=== PATIENT | female | born 1945 | race African-American/Black ===

== ENCOUNTER 2019-04-04 15:41 | Observation (INO) | payer OTHER ==
[2019-04-04] MEDS ORDERED: ASPIRIN PO ONE (16:02)
--- NOTE | 2019-04-04 16:03 | Event Note ---
ED Screening Note Date of service: 04/04/19 Time: 15:59 ED Screening Note: This is a 73 y.o. F. that presents to the ER with SOB, chest pain, and numbness on the LUE. Reports symptoms started at 0100 AM today. Reports blurry vision started shortly after. PMH HTN, peripheral vascular disease, HLD Denies recent travel, fever, cough This initial assessment/diagnostic orders/clinical plan/treatment(s) is/are subject to change based on patients health status, clinical progression and re-assessment by fellow clinical providers in the ED. Further treatment and workup at subsequent clinical providers discretion. Patient/guardian urged not to elope from the ED as their condition may be serious if not clinically assessed and managed. Initial orders include: Labs, EKG, & CXR
[2019-04-04 16:38] LABS: Basophils % (Auto) 0.4 % (0.0-1.8); Eosinophils # (Auto) 0.1 K/mm3 (0.0-0.4); Eosinophils % (Auto) 1.5 % (0.0-4.3); Hematocrit 42.2 % (30.3-42.9); Hemoglobin 14.4 gm/dl (10.1-14.3); Lymphocytes # (Auto) 1.4 K/mm3 (1.2-5.4); Lymphocytes % (Auto) 36.3 % (13.4-35.0); Mean Corpuscular HGB Conc 34 % (30-34); Mean Corpuscular Volume 81 fl (79-97); Monocytes # (Auto) 0.4 K/mm3 (0.0-0.8); Monocytes % (Auto) 9.1 % (0.0-7.3); Platelet Count 235 K/mm3 (140-440); Red Cell Distribution Width 13.1 % (13.2-15.2)
--- NOTE | 2019-04-04 16:45 | XRay Report ---
CHEST 1 VIEW INDICATION: Chest Pain. COMPARISON: None. FINDINGS: Support devices: None. Heart: Within normal limits. Lungs/Pleura: Lung volumes are mildly diminished. Negative for significant infiltrate. Additional findings: None. IMPRESSION: Diminished lung volumes. Signer Name: Chivo Fraser MD Signed: 04/04/2019 4:40 PM Workstation Name: [id number]
[2019-04-04 16:59] LABS: BUN/Creatinine Ratio 35; Blood Urea Nitrogen 21 mg/dL (7-17); Calcium 9.6 mg/dL (8.4-10.2); Hemolysis Index 8
--- NOTE | 2019-04-04 20:33 | Emergency Department Report ---
ED Chest Pain HPI - General Chief Complaint: Dyspnea/Respdistress Stated Complaint: CHEST PAIN/GERALDINE/LT ARM NUMB Time Seen by Provider: 04/04/19 15:59 Source: writer producer, old records reviewed (previous medical clerk recommended) Mode of arrival: Ambulatory Limitations: No Limitations - History of Present Illness Initial Comments: 73-year-old female with a past medical history of hypertension, pacemaker placement, PVD, and hyperlipidemia presents to the Hospital complaining of left- sided chest pain, shortness of breath, left arm numbness that started about 1 AM. Patient had dizziness and blurred vision which has since resolved. Patient has continued to have intermittent chest pain and shortness of breath throughout the day. Patient had a similar episode 15 days ago that occurred while sleeping as well but then resolved. No reports of nausea, vomiting, or diaphoresis. Patient denies recent travel or cough. She does not smoke cigarettes and denies a personal history of CAD. No previous stress test reported. She takes aspirin 81 mg daily. She is compliant with her other medications. PMD: None. - Related Data Allergies Allergy/AdvReac Type Severity Reaction Status Date / Time No Known Allergies Allergy Unverified 04/04/19 16:07 Heart Score - HEART Score History: Moderately suspicious EKG: Non-specific Age: > 65 Risk factors: > 3 risk factors or hx of atherosclerotic disease Troponin: < normal limit HEART Score: 6 ED Review of Systems ROS: Stated complaint: CHEST PAIN/GERALDINE/LT ARM NUMB Other details as noted in HPI Comment: All other systems reviewed and negative ED Past Medical Hx - Past Medical History Hx Hypertension: Yes Additional medical history: PVD - Social History Smoking Status: Never Smoker Substance Use Type: None ED Physical Exam - General Limitations: No Limitations - Other Other exam information: General: no acute distress Head: Atraumatic, normocephalic Eyes: Normal appearance, pupils equal and reactive to light, extraocular movements intact ENT: normal oropharynx Neck: Normal appearance, no stridor, no meningismus, no midline tenderness. Cardiovascular: Regular rate and rhythm chest wall nontender Chest: Clear to auscultation, no wheezes, rales, or crackles Abdomen: nondistended, soft, nontender, no rebound or guarding Extremity: Normal appearance, no deformity, full range of motion, no calf tenderness or edema Neuro: Alert and oriented 3, clear speech, no gross motor or sensory deficit Skin: No warmth, erythema ED Course Vital Signs 04/04/19 04/04/19 04/04/19 16:01 17:50 20:11 Temperature 97.8 F Pulse Rate 72 61 Respiratory 18 16 16 Rate Blood Pressure 171/65 Blood Pressure 154/99 [Right] O2 Sat by Pulse 91 94 Oximetry ED Medical Decision Making - Lab Data Result diagrams: 04/04/19 16:21 04/04/19 16:21 Lab Results 04/04/19 04/04/19 04/04/19 Range/Units 16:21 16:21 19:12 WBC 3.9 L (4.5-11.0) K/mm3 RBC 5.20 H (3.65-5.03) M/mm3 Hgb 14.4 H (10.1-14.3) gm/dl Hct 42.2 (30.3-42.9) % MCV 81 (79-97) fl MCH 28 (28-32) pg MCHC 34 (30-34) % RDW 13.1 L (13.2-15.2) % Plt Count 235 (140-440) K/mm3 Lymph % (Auto) 36.3 H (13.4-35.0) % [place] % (Auto) 9.1 H (0.0-7.3) % Eos % (Auto) 1.5 (0.0-4.3) % Baso % (Auto) 0.4 (0.0-1.8) % Lymph # 1.4 (1.2-5.4) K/mm3 [place] # 0.4 (0.0-0.8) K/mm3 Eos # 0.1 (0.0-0.4) K/mm3 Baso # 0.0 (0.0-0.1) K/mm3 Seg Neutrophils % 52.7 (40.0-70.0) % Seg Neutrophils # 2.1 (1.8-7.7) K/mm3 Sodium 140 (137-145) mmol/L Potassium 3.5 L (3.6-5.0) mmol/L Chloride 102.1 (98-107) mmol/L Carbon Dioxide 22 (22-30) mmol/L Anion Gap 19 mmol/L BUN 21 H (7-17) mg/dL Creatinine 0.6 L (0.7-1.2) mg/dL Estimated GFR > 60 ml/min BUN/Creatinine Ratio 35 % Glucose 113 H (65-100) mg/dL Calcium 9.6 (8.4-10.2) mg/dL Troponin T < 0.010 < 0.010 (0.00-0.029) ng/mL - EKG Data -: EKG Interpreted by Me (RBB, premature atrial complex) EKG shows normal: sinus rhythm, axis (qrs -23), QRS complexes (qrsd 151), ST-T waves (no stemi) Rate: normal (70) - EKG Data When compared to previous EKG there are: previous EKG unavailable - Radiology Data Radiology results: report reviewed CHEST 1 VIEW INDICATION: Chest Pain. COMPARISON: None. FINDINGS: Support devices: None. Heart: Within normal limits. Lungs/Pleura: Lung volumes are mildly diminished. Negative for significant infiltrate. Additional findings: None. IMPRESSION: Diminished lung volumes. - Differential Diagnosis MD, angina, PE, dissection, atypical chest pain, CHF, sleep apnea Critical Care Time: No Critical care attestation.: If time is entered above; I have spent that time in minutes in the direct care of this critically ill patient, excluding procedure time. ED Disposition Clinical Impression: Chest pain, Hypertension, Hyperlipidemia Disposition: DC-09 OP ADMIT IP TO THIS HOSP Is pt being admited?: Yes Condition: Stable Time of Disposition: 20:34
[2019-04-04] MEDS ORDERED: ASPIRIN ONE (21:04)
--- NOTE | 2019-04-04 21:45 | History and Physical Report ---
History of Present Illness Chief complaint: Chest pain History of present illness: 73-year-old woman who presents with chest pain shortness of breath and numbness in her left upper extremity, symptoms have been going on for over 18 hours now. She also reports that she had transient episode of blurry vision. She reports having a similar episode 2 weeks ago, did not see a doctor it resolved on its own Past medical history; hypertension, peripheral vascular disease, hyperlipidemia Past surgical history; Family history; heart disease and hypertension Social history; denies any history of smoking, alcohol abuse or illicit drug abuse Constitutional: no fever, no chills, no night sweats, no weight loss, no weight gain, no sweats, no anorexia, no fatigue, no weakness, no malaise, no lethargy Eyes: bilateral: other (no complaint of visual problems.) Ears, nose, mouth and throat: mouth pain, no ear pain, no ear discharge, no decreased hearing, no nose pain, no nasal congestion, no bleeding gums, no dental pain, no dysphagia, no hoarseness, no sore throat Cardiovascular: no orthopnea, no palpitations, no rapid/irregular heart beat, no phlebitis Respiratory: no cough with sputum, no excessive sputum, no hemoptysis, no wheezing, no pleurisy, no pain Gastrointestinal: no abdominal pain, no nausea, no vomiting, no diarrhea, no hematochezia, no loss of appetite Rectal: no pain, no incontinence, no bleeding Musculoskeletal: no neck stiffness, no neck pain, no shooting arm pain, no arm numbness/tingling, no low back pain, no shooting leg pain, no leg numbness/tingling Integumentary: no pruritis, no redness, no sores Neurological: no transient paralysis, no paralysis, no weakness Psychiatric: no memory loss, no change in sleep habits, no disorientation Endocrine: no heat intolerance, no polyphagia Hematologic/Lymphatic: no easy bruising, no easy bleeding Allergic/Immunologic: no allergic rhinitis Medications and Allergies Allergies Allergy/AdvReac Type Severity Reaction Status Date / Time No Known Allergies Allergy Unverified 04/04/19 16:07 Home Medications Medication Instructions Recorded Confirmed Last Taken Type No Known Home Medications [No 04/04/19 04/04/19 Unknown History Reported Home Medications] Exam - Constitutional Vitals: Temp Pulse Resp BP Pulse Ox 97.8 F 61 16 154/99 94 04/04/19 16:01 04/04/19 17:50 04/04/19 20:11 04/04/19 17:50 04/04/19 17:50 General appearance: Present: no acute distress, well-nourished - EENT Eyes: Present: PERRL ENT: hearing intact, clear oral mucosa - Neck Neck: Present: supple, normal ROM - Respiratory Respiratory effort: normal Respiratory: bilateral: CTA - Cardiovascular Heart Sounds: Present: S1 & S2. Absent: rub, click - Extremities Extremities: pulses symmetrical, No edema Peripheral Pulses: within normal limits - Abdominal General gastrointestinal: Present: soft, non-tender, non-distended, normal bowel sounds Female genitourinary: Present: normal - Integumentary Integumentary: Present: clear, warm, dry - Musculoskeletal Musculoskeletal: gait normal, strength equal bilaterally - Psychiatric Psychiatric: appropriate mood/affect, intact judgment & insight - Neurologic Neurologic: CNII-XII intact, moves all extremities Results - Labs CBC & Chem 7: 04/04/19 16:21 04/04/19 16:21 Labs: Laboratory Last Values WBC 3.9 K/mm3 (4.5-11.0) L 04/04/19 16:21 RBC 5.20 M/mm3 (3.65-5.03) H 04/04/19 16:21 Hgb 14.4 gm/dl (10.1-14.3) H 04/04/19 16:21 Hct 42.2 % (30.3-42.9) 04/04/19 16:21 MCV 81 fl (79-97) 04/04/19 16:21 MCH 28 pg (28-32) 04/04/19 16:21 MCHC 34 % (30-34) 04/04/19 16:21 RDW 13.1 % (13.2-15.2) L 04/04/19 16:21 Plt Count 235 K/mm3 (140-440) 04/04/19 16:21 Lymph % (Auto) 36.3 % (13.4-35.0) H 04/04/19 16:21 [place] % (Auto) 9.1 % (0.0-7.3) H 04/04/19 16:21 Eos % (Auto) 1.5 % (0.0-4.3) 04/04/19 16:21 Baso % (Auto) 0.4 % (0.0-1.8) 04/04/19 16:21 Lymph # 1.4 K/mm3 (1.2-5.4) 04/04/19 16:21 [place] # 0.4 K/mm3 (0.0-0.8) 04/04/19 16:21 Eos # 0.1 K/mm3 (0.0-0.4) 04/04/19 16:21 Baso # 0.0 K/mm3 (0.0-0.1) 04/04/19 16:21 Seg Neutrophils % 52.7 % (40.0-70.0) 04/04/19 16:21 Seg Neutrophils # 2.1 K/mm3 (1.8-7.7) 04/04/19 16:21 Sodium 140 mmol/L (137-145) 04/04/19 16:21 Potassium 3.5 mmol/L (3.6-5.0) L 04/04/19 16:21 Chloride 102.1 mmol/L (98-107) 04/04/19 16:21 Carbon Dioxide 22 mmol/L (22-30) 04/04/19 16:21 19 mmol/L 04/04/19 16:21 BUN 21 mg/dL (7-17) H 04/04/19 16:21 0.6 mg/dL (0.7-1.2) L 04/04/19 16:21 Estimated GFR > 60 ml/min 04/04/19 16:21 35 % 04/04/19 16:21 Glucose 113 mg/dL (65-100) H 04/04/19 16:21 Calcium 9.6 mg/dL (8.4-10.2) 04/04/19 16:21 < 0.010 ng/mL (0.00-0.029) 04/04/19 19:12 - Imaging and Cardiology Chest x-ray: image reviewed (no acute findings, decreased lung volumes) Assessment and Plan Assessment and plan: 73-year-old woman who presents with chest pain Chest x-ray; no acute findings, reduced lung volumes Chest pain Serial troponins negative 2, stress test in a.m. Chest x-ray is a poor study, repeat x-ray Hypertensive urgency Optimize blood pressure medications Hyperlipidemia Check lipid panel, that since if indicated Hypokalemia Replete by mouth DVT prophylaxis; chemical
[2019-04-04] MEDS ORDERED: PERCOCET 5/325 PO PRN (21:46)
[2019-04-04] MEDS ORDERED: MORPHINE IV PRN (21:46)
[2019-04-04] MEDS ORDERED: SODIUM CHLORIDE FLUSH SYRINGE 10 ML IV PRN (21:46)
[2019-04-04] MEDS ORDERED: TYLENOL PO PRN (21:46)
[2019-04-04] MEDS ORDERED: ZOFRAN IV PRN (21:46)
[2019-04-04] MEDS ORDERED: APRESOLINE IV PRN (21:48)
[2019-04-04] MEDS ORDERED: LOVENOX SUB-Q SCH (22:00)
[2019-04-04] MEDS ORDERED: K-DUR PO ONE (22:00)
--- NOTE | 2019-04-04 22:28 | XRay Report ---
CHEST 2 VIEWS INDICATION: cp. COMPARISON: 04/04/2019. FINDINGS: Support devices: None. Heart: Within normal limits. Lungs/Pleura: No acute air space or interstitial disease. No significant pleural effusion. IMPRESSION: No acute findings. Signer Name: Chivo Fraser MD Signed: 04/04/2019 10:24 PM Workstation Name: [id number]
[2019-04-04 23:07] LABS: BUN/Creatinine Ratio 35; Blood Urea Nitrogen 21 mg/dL (7-17); Calcium 9.7 mg/dL (8.4-10.2); Hemolysis Index 8
[2019-04-04] MEDS: SODIUM CHLORIDE FLUSH SYRINGE 10 ML IV SCH (23:40)
[2019-04-05 05:20] LABS: BUN/Creatinine Ratio 33; Blood Urea Nitrogen 23 mg/dL (7-17); Calcium 9.2 mg/dL (8.4-10.2); Chol/HDL Ratio 5.51 %; HDL Cholesterol 33 mg/dL (40-59); Hemolysis Index 9; LDL Cholesterol,Direct 128 mg/dL (50-130)
[2019-04-05] MEDS ORDERED: LEXISCAN IV ONE ×2 (09:31)
--- NOTE | 2019-04-05 11:25 | Discharge Summary ---
Providers - Providers Date of Admission: 04/04/19 21:34 Attending physician: MICHELLE RUBY MD 04/04/19 Consult to Cardiac Rehabilitation [CONS] Routine Reason For Exam: Phase I 04/04/19 21:46 Consult to Cardiology [CONS] Routine Consulting Provider: EDIN GALEANO Reason For Exam: cp [facility] Condition: Stable Hospital course: [id number] woman who presents with chest pain shortness of breath and numbness in her left upper extremity, symptoms have been going on for over 18 hours now. She also reports that she had transient episode of blurry vision. She reports having a similar episode 2 weeks ago, did not see a doctor it resolved on its own Chest x-ray; no acute findings, reduced lung volumes Chest pain Serial troponins negative 2, stress test was done and was negative. Pateint was advised about old infarct noted on brain ct and advised on managmement to prevent secondary cva Chest x-ray was unremarkable Hypertensive urgency Optimize blood pressure medications Hyperlipidemia Hypokalemia Repleted Disposition: TO HOME OR SELFCARE Core Measure Documentation - Palliative Care Palliative Care/ Comfort Measures: Not Applicable - Core Measures Any of the following diagnoses?: none Exam - Physical Exam Narrative exam: General appearance: Present: no acute distress, well-nourished, resting comfortable - EENT Eyes: Present: PERRL ENT: hearing intact, clear oral mucosa - Neck Neck: Present: supple, normal ROM - Respiratory Respiratory effort: normal Respiratory: bilateral: CTA - Cardiovascular Heart Sounds: Present: S1 & S2. Absent: rub, click - Extremities Extremities: pulses symmetrical, No edema Peripheral Pulses: within normal limits - Abdominal General gastrointestinal: Present: soft, non-tender, non-distended, normal bowel sounds Female genitourinary: Present: normal - Integumentary Integumentary: Present: clear, warm, dry - Musculoskeletal Musculoskeletal: gait normal, strength equal bilaterally - Psychiatric Psychiatric: appropriate mood/affect, intact judgment & insight - Neurologic Neurologic: CNII-XII intact, moves all extremities - Constitutional Vitals: Temp Pulse Resp BP Pulse Ox 98.0 F 55 L 18 143/66 93 04/05/19 07:35 04/05/19 07:35 04/05/19 07:35 04/05/19 07:35 04/05/19 07:35 Plan Activity: advance as tolerated, fall precautions Diet: low fat, diabetic Special Instructions: record blood sugar diary Follow up with: ARPIT SEQUEIRA MD [Primary Care Provider] - 7 Days MITESH WHEATLEY MD [Staff Physician] - 7 Days Prescriptions: AtorvaSTATin [Lipitor] 40 mg PO QHS #30 tab Aspirin [Aspirin BABY CHEW TAB] 81 mg PO QDAY #30 tab.chew
[2019-04-05 11:28] VITALS: BP 146/51
[2019-04-05] MEDS ORDERED: ASPIRIN PO SCH (12:00)
[2019-04-05] MEDS ORDERED: TYLENOL ONE (12:10)
[2019-04-05] MEDS: SODIUM CHLORIDE FLUSH SYRINGE 10 ML IV SCH (13:08)
--- NOTE | 2019-04-05 14:30 | Cat Scan Report ---
CT HEAD WITHOUT CONTRAST INDICATION : LEFT ARM NUMBNESS. TECHNIQUE: Axial imaging performed from the skull apex through the skull base without the use of con trast. Sagittal and coronal reformatted images. All CT scans at this location are performed using C T dose reduction for ALARA by means of automated exposure control. COMPARISON: None FINDINGS: Parenchyma: Minimal nonspecific chronic white matter changes are identified. A chronic focal infarct in the left frontal white matter measures 1.1 cm on image 18. Chronic lacunar infarct in the left borrego binsular region measures 9 mm. The remaining brain parenchyma is within normal limits. No evidence fo r hemorrhage, mass or large area of acute ischemia. Ventricles: Ventricles are normal in size and appear symmetric. Bones: No acute osseous abnormality. Sinuses: Sinuses and mastoid air cells are clear. Soft tissues: Soft tissues including the orbits appear normal. IMPRESSION: No acute abnormality. Minimal chronic white matter changes and 2 focal chronic infarcts a s outlined above. Signer Name: Michael Francis Jr, MD Signed: 04/05/2019 2:25 PM Workstation Name: [id number]
--- NOTE | 2019-04-05 14:39 | Consultation ---
History of Present Illness Consult date: 04/05/19 Requesting physician: LUNA MARIE Consult reason: chest pain History of present illness: Ms. Sinha is a 73 y/o female admitted with chest pain and shortness of breath that began yesterday. She describes the pain as sudden-onset, midsternal and alternating between pressure and stabbing, rated as 8/10. The pain is not reproducible. She also endorses an intermittent ability to catch her breath. Her only known medical history is hypertension. She is unknown to our practice and has no primary needle grader. An EKG was negative for STEMI and troponins were also negative. She denies both SOB and CP on examination. There were brief runs of NSVT noted on telemetry overnight as well as sinus vishal cardia, but these were asymptomatic. A stress test on 04/05/19 found no evidence of ischemia or infarct. An echocardiogram on 04/05/19 found an EF of 55 to 60 percent and moderate concentric LVH. Past History Past Medical History: hypertension Medications and Allergies Allergies Allergy/AdvReac Type Severity Reaction Status Date / Time No Known Allergies Allergy Unverified 04/04/19 16:07 Home Medications Medication Instructions Recorded Confirmed Last Taken Type Aspirin [Aspirin BABY CHEW TAB] 81 mg PO QDAY #30 tab.chew 04/05/19 Unknown Rx AtorvaSTATin [Lipitor] 40 mg PO QHS #30 tab 04/05/19 Unknown Rx Active Meds: Active Medications Acetaminophen (Tylenol) 650 mg PO Q4H PRN PRN Reason: Pain MILD(1-3)/Fever >100.5/DUMONT Last Admin: 04/05/19 12:11 Dose: 650 mg Documented by: Aspirin (Aspirin) 325 mg PO QDAY [facility] Last Admin: 04/05/19 13:07 Dose: 325 mg Documented by: Enoxaparin Sodium (Lovenox) 40 mg SUB-Q QDAY@2200 [facility] Last Admin: 04/04/19 23:39 Dose: 40 mg Documented by: Hydralazine HCl (Apresoline) 10 mg IV Q4H PRN PRN Reason: BP >160/100 Morphine Sulfate (Morphine) 2 mg IV Q4H PRN PRN Reason: Pain, Moderate (4-6) Stop: 04/08/19 21:45 Ondansetron HCl (Zofran) 4 mg IV Q8H PRN PRN Reason: Nausea And Vomiting Oxycodone/Acetaminophen (Percocet 5/325) 1 tab PO Q6H PRN PRN Reason: Pain, Moderate (4-6) Stop: 04/06/19 21:45 Sodium Chloride (Sodium Chloride Flush Syringe 10 Ml) 10 ml IV BID FABIO Last Admin: 04/05/19 13:08 Dose: 10 ml Documented by: Sodium Chloride (Sodium Chloride Flush Syringe 10 Ml) 10 ml IV PRN PRN PRN Reason: LINE FLUSH Review of Systems All systems: negative Cardiovascular: chest pain, shortness of breath Physical Examination Last Vital Signs Temp 98.0 F 04/05/19 07:35 Pulse 57 L 04/05/19 11:34 Resp 18 04/05/19 12:38 BP 146/51 04/05/19 11:14 Pulse Ox 93 04/05/19 07:35 General appearance: no acute distress HEENT: Positive: PERRL Neck: Positive: neck supple Cardiac: Positive: Reg Rate and Rhythm Lungs: Positive: Normal Exam Neuro: Positive: Grossly Intact Abdomen: Positive: Unremarkable Female genitourinary: deferred Skin: Positive: Clear Musculoskeletal: Normal Range of Motion Extremities: Present: normal Results 04/04/19 16:21 04/05/19 04:19 Lipids 04/05/19 Range/Units 04:19 Triglycerides 262 H (2-149) mg/dL Cholesterol 182 (50-199) mg/dL HDL Cholesterol 33 L (40-59) mg/dL Cholesterol/HDL Ratio 5.51 % CBC 04/04/19 Range/Units 16:21 WBC 3.9 L (4.5-11.0) K/mm3 RBC 5.20 H (3.65-5.03) M/mm3 Hgb 14.4 H (10.1-14.3) gm/dl Hct 42.2 (30.3-42.9) % Plt Count 235 (140-440) K/mm3 Lymph # 1.4 (1.2-5.4) K/mm3 [place] # 0.4 (0.0-0.8) K/mm3 Eos # 0.1 (0.0-0.4) K/mm3 Baso # 0.0 (0.0-0.1) K/mm3 Comprehensive Metabolic Panel 08/04/04/19 04/05/19 Range/Units 16:21 22:42 04:19 Sodium 140 137 141 (137-145) mmol/L Potassium 3.5 L 3.5 L 3.9 (3.6-5.0) mmol/L Chloride 102.1 100.4 105.5 (98-107) mmol/L Carbon Dioxide 22 24 26 (22-30) mmol/L BUN 21 H 21 H 23 H (7-17) mg/dL Creatinine 0.6 L 0.6 L 0.7 (0.7-1.2) mg/dL Glucose 113 H 146 H 155 H (65-100) mg/dL Calcium 9.6 9.7 9.2 (8.4-10.2) mg/dL - Imaging and Cardiology Stress echo: report reviewed (04/05/19: negative for ischemia and infarct) Echo: report reviewed (04/05/19: EF 55-60%, moderate concentric LVH) EKG interpretations - Telemetry EKG Rhythm: Sinus Rhythm AV and intraventricular conduction: right bundle branch block, left anterior fascicular Assessment and Plan Ms. Sinha is a 73 y/o female admitted with SOB and CP since yesterday. She denies both on examination today. Her only known medical history is hypertension. The etiology of her chest pain is unclear, but it does not appear to cardiac. She is stable from a cardiac standpoint and may be discharged home from our perspective. Follow up appointment is with Dr. Crooks on 04/11/2019 at 10:30 am in [place]. - Patient Problems (1) Atypical chest pain Current Visit: Yes Status: Acute (2) Sinus bradycardia Current Visit: Yes Status: Acute (3) Hyperlipidemia Current Visit: Yes Status: Chronic (4) Hypertension Current Visit: Yes Status: Chronic
--- NOTE | 2019-04-06 02:49 | Treadmill Report ---
NUCLEAR CARDIAC IMAGING REPORT INDICATION FOR PROCEDURE: Chest pain. Informed consent was obtained. Vasodilator stress was achieved with the intravenous administration of 0.4 mg of Lexiscan per protocol. Rest and stress nuclear cardiac imaging was performed following the intravenous administration of technetium-99m Myoview per protocol. Gated SPECT imaging demonstrates a post-stress left ventricular ejection fraction of 69% with normal wall motion. Myocardial perfusion imaging demonstrates no significant cavity dilation between stress and rest. No significant stress-induced perfusion defects are seen. Nuclear cardiac imaging demonstrates grossly normal post-stress left ventricular systolic function with no significant evidence for myocardial ischemia or necrosis. [facility]# [id number] TOAN/NTS
== END 2019-04-05 16:52 | disposition home or self-care (01) ==
LOC: ED 15:41 → 4A 21:34
PROVIDERS: ADMIT Internal Medicine; ATTEND Internal Medicine
DX: R07.89 Other chest pain (principal); E78.5 Hyperlipidemia, unspecified; I10 Essential (primary) hypertension; I16.0 Hypertensive urgency; E87.6 Hypokalemia
CPT/HCPCS: 36415; 70450; 71045; 71046; 78452; 80048; 80061; 84484; 85025; 93005; 93010; 93017; 93306; 96372; 99284; A9270; A9502; G0378; J1650; J2785; 96374